=== PATIENT | female | born 1980 | race African-American/Black ===

== ENCOUNTER 2024-11-19 10:45 | Emergency (ER) | payer OTHER ==
[~2024-11-19] VITALS: Ht 160 cm; Wt 80.0 kg
[2024-11-19 10:53] VITALS: O2SAT 100
[2024-11-19 13:02] LABS: BASOPHILS % 0.4 % (0.0-2.0); EOSINOPHILS % 0.7 % (0.0-5.0); HEMATOCRIT. 30.5 % (36.0-48.0); HEMOGLOBIN. 9.5 g/dL (12.0-16.0); LYMPHOCYTES % 12.1 % (20.0-50.0); MEAN CORPUSCULAR HEMOGLOBIN 21.6 pg (28.0-32.0); MEAN CORPUSCULAR HGB CONC 31.1 g/dL (31.0-37.0); MEAN CORPUSCULAR VOLUME 69.5 fL (81.0-99.0); MEAN PLATELET VOLUME 9.4 fl (7.4-10.4); MONOCYTES % 4.5 % (2.0-8.0); NEUTROPHILS % 82.3 % (40.0-76.0); PLATELET 460 x1000/uL (130-400); RED BLOOD CELL COUNT 4.38 mill/uL (4.2-5.4); WHITE BLOOD COUNT 10.7 x1000/uL (4.5-11.0)
[2024-11-19 13:07] LABS: ADD RBC MORPHOLOGY YES; DIFFERENTIAL COMMENT 1
[2024-11-19 13:13] LABS: CHLORIDE 105 mEq/L (98-107); POTASSIUM 3.9 mEq/L (3.5-5.1); SODIUM 138 mEq/L (136-145)
[2024-11-19 13:14] LABS: CARBON DIOXIDE 27 mEq/L (21-32)
[2024-11-19 13:15] LABS: CALCIUM 9.6 mg/dL (8.7-10.4)
[2024-11-19 13:20] LABS: CREATININE 0.7 mg/dL (0.6-1.0); GLUCOSE 97 mg/dL (70-105); UREA NITROGEN BLOOD 6 mg/dL (9-23)
[2024-11-19 13:21] LABS: ALANINE AMINOTRANSFERASE 11 IU/L (10-49); ALBUMIN 4.3 g/dL (3.2-4.8); ASPARTATE AMINOTRANSFERASE 16 IU/L (<34)
[2024-11-19 13:22] LABS: BILIRUBIN TOTAL 0.5 mg/dL (0.1-1.0); HCG SCREEN NEGATIVE; PROTEIN TOTAL 7.8 g/dL (6.0-8.3)
[2024-11-19] MEDS: ONDANSETRON 4MG ODT PO ONE (14:16)
[2024-11-19] MEDS ORDERED: ONDA-239 PO (15:38)
[2024-11-19] MEDS ORDERED: METR-167 PO (15:38)
[2024-11-19 15:47] VITALS: BP 109/78; PULSE 89; RESP 17; TEMP 36.8; O2SAT 100
[2024-11-19 17:50] LABS: ANISOCYTOSIS 3+; HYPOCHROMASIA 2+; MICROCYTOSIS 3+; PLATELET ESTIMATE INCREASED
== END 2024-11-19 15:48 | disposition home or self-care (01) ==
LOC: ER 10:56
DX: A08.4 Viral intestinal infection, unspecified (principal); B96.89 Other specified bacterial agents as the cause of diseases classified elsewhere; N76.0 Acute vaginitis
CPT/HCPCS: 80053; 84703; 85025; 36415; 99283; Q0162; Z7610